=== PATIENT | male | born 1950 | race Hispanic/Latino ===

== ENCOUNTER 2022-12-26 18:10 | Emergency (ER) | payer OTHER, MEDICARE ==
[~2022-12-26] VITALS: Ht 167.6 cm; Wt 86.2 kg
[2022-12-26 19:43] LABS: BASOPHILS % (AUTO) 0.2 % (0.0-5.0); EOSINOPHILS % (AUTO) 2.5 % (0.0-8.0); HEMATOCRIT 41.3 % (42-54); LYMPHOCYTES % (AUTO) 18.4 % (21.0-51.0); MEAN CORPUSCULAR HEMOGLOBIN 31.1 pg (27.0-33.0); MEAN CORPUSCULAR HGB CONC 35.4 g/dL (32.0-36.0); MEAN CORPUSCULAR VOLUME 88.1 fL (79-99); MONOCYTES % (AUTO) 7.5 % (3.0-13.0); PLATELET COUNT (AUTO) 150 K/uL (130-400); RED BLOOD CELL COUNT(AUTO) 4.69 MIL/uL (4.50-6.20); RED CELL DISTRIBUTION WIDTH 12.4 % (11.0-15.5); WHITE BLOOD COUNT (AUTO) 9.2 K/uL (4.8-10.8)
[2022-12-26 19:51] LABS: CREATININE 1.6 mg/dL (0.5-1.5); POTASSIUM 3.8 mmol/L (3.5-5.1)
[2022-12-26 19:58] LABS: ALBUMIN 3.7 g/dL (3.5-5.0); TOTAL PROTEIN, SERUM 7.8 g/dL (6.0-8.3)
[2022-12-26 22:32] LABS: APPEARANCE,URINE CLEAR (CLEAR); BILIRUBIN,URINE NEGATIVE (NEGATIVE); COLOR,URINE COLORLESS (YELLOW); GLUCOSE, URINE (UA) NEGATIVE (NEGATIVE); KETONES,URINE NEGATIVE (NEGATIVE); LEUKOCYTE ESTERASE ,URINE 25 Leu/uL (NEGATIVE); NITRATE,URINE NEGATIVE (NEGATIVE); OCCULT BLOOD,URINE NEGATIVE (NEGATIVE); PROTEIN,URINE NEGATIVE (NEGATIVE); UROBILINOGEN,URINE 0.2 mg/dL (0.2-1.0)
[2022-12-26] MEDS ORDERED: CEPH500B PO (22:42)
[2022-12-26 23:55] VITALS: BP 138/62
== END 2022-12-27 00:07 | disposition home or self-care (01) ==
LOC: EDBD 18:10 → EDH 18:10
DX: S09.8XXA Other specified injuries of head, initial encounter (principal); S39.92XA Unspecified injury of lower back, initial encounter; N39.0 Urinary tract infection, site not specified; M54.2 Cervicalgia; E11.9 Type 2 diabetes mellitus without complications; E78.00 Pure hypercholesterolemia, unspecified; W18.39XA Other fall on same level, initial encounter; Y93.89 Activity, other specified; Y92.89 Other specified places as the place of occurrence of the external cause; Y99.8 Other external cause status
CPT/HCPCS: 36415; 70450; 72125; 72131; 80053; 81001; 84484; 85025; 93005

== ENCOUNTER → 2025-07-17 | Outpatient (CLI) | payer OTHER, MEDICARE ==
[~2025-07-17] MED LIST: CEPH500B PO
--- NOTE | 2025-07-17 15:29 | HMCIMG ---
US RENAL SONOGRAM INDICATION: Chronic kidney disease FINDINGS: The kidneys demonstrate normal size, shape and echotexture throughout. The right kidney measures 10.3 x 4.3 x 4.0 cm in length. The left kidney measures 9.5 x 3.95 x 3.2 cm in length. There is no evidence of perinephric fluid.?The left kidney mass appears to be mildly echogenic suggesting a possibly underlying medical renal disease The right kidney has 2 simple cortical cyst in upper pole measuring 2.1 x 1.6 x 1.6 cm lower pole cyst in the right kidney measuring 2.2 x 2.1 x 2.3 cm. The bladder is partially distended and unremarkable. No focal bladder wall mass or calcification identified. The urinary bladder appears to be normal. There is no free fluid in the pelvis. The prostate is enlarged with a volume of 82.6 cc IMPRESSION: 1. Left kidney has echogenic cortex suggesting a possibly underlying medical renal disease. 2. Cortical cysts seen in the right kidney 3. Prostatomegaly
== END | disposition home or self-care (01) ==
LOC: RAH 12:01
PROVIDERS: ATTEND Internal Medicine
DX: N40.0 Benign prostatic hyperplasia without lower urinary tract symptoms (principal); N28.1 Cyst of kidney, acquired; N32.89 Other specified disorders of bladder; N18.32 Chronic kidney disease, stage 3b
CPT/HCPCS: 76770